=== PATIENT | female | born 1995 | race Two or more races ===

== ENCOUNTER 2022-10-02 11:53 | Inpatient (IN) | payer OTHER ==
[~2022-10-02] VITALS: Ht 175.3 cm; Wt 78.9 kg
[2022-10-02] MEDS ORDERED: PRENATAL TABLE1 EAC1 PO (15:29)
== END 2022-10-06 16:39 | disposition home or self-care (01) | DRG 819 ==
LOC: LDR 11:53
PROVIDERS: ADMIT Obstetrics & Gynecology; ATTEND Obstetrics & Gynecology
PROC: 4A1HXCZ Monitoring of Products of Conception, Cardiac Rate, External Approach (ICD-10-PCS; 2022-10-02)
PROC: 0UVC7ZZ Restriction of Cervix, Via Natural or Artificial Opening (ICD-10-PCS; principal; 2022-10-03 17:00)
PROC: BY4CZZZ Ultrasonography of Second Trimester, Single Fetus (ICD-10-PCS; 2022-10-05)
DX: O34.32 Maternal care for cervical incompetence, second trimester (principal); Z3A.23 23 weeks gestation of pregnancy; Z20.822 Contact with and (suspected) exposure to COVID-19